=== PATIENT | male | born 1960 | race Caucasian/White ===

== ENCOUNTER 2017-04-16 12:45 | Day surgery (SDC) | payer OTHER ==
[~2017-04-16] VITALS: Ht 185.4 cm; Wt 103.9 kg
[2017-04-16] VITALS (8 sets, daily range): BP systolic 125–160; BP diastolic 77–94; PULSE 78–95; RESP 14–16; O2SAT 93–99
[~2017-04-16 12:45] MED LIST: BUSP7.5T5 PO; CYCL10TA9 PO; CeFAZolin Inj 2 GM in IV Premix 1 EACH IV ONE; HYDR-4003 PO; KLO5T PO; LISI10TA PO; Lactated Ringer's 1,000 ML IV SCH; MELO-259 PO; PROP10TA8 PO; TERA5CAP6 PO
[2017-04-16] MEDS ORDERED: MetoCLOpramide 5 mg/mL 2 mL Inj ONE (12:46)
[2017-04-16] MEDS ORDERED: Propofol 10,000 mCg/mL 20 mL Inj ONE (12:46)
[2017-04-16] MEDS ORDERED: Dexamethasone 4 mg/mL Inj ONE (12:46)
[2017-04-16] MEDS ORDERED: fentaNYL-PF 50 mCg/mL 2 mL Inj ONE (12:46)
[2017-04-16] MEDS ORDERED: EPHEDrine/NS 5 mg/mL 5 mL Syringe ONE (12:46)
[2017-04-16] MEDS ORDERED: Ondansetron 2 mg/mL 2 mL Inj ONE (12:46)
[2017-04-16] MEDS ORDERED: CeFAZolin Inj 2 gm / 50mL D5W IV ONE (14:18)
[2017-04-16] MEDS ORDERED: Lactated Ringer's 1,000 ML IV ONE (14:26)
[2017-04-16] MEDS ORDERED: Lactated Ringer's 500 ML IV PRN (15:04)
[2017-04-16] MEDS ORDERED: Lactated Ringer's 1,000 ML IV SCH (15:04)
[2017-04-16] MEDS ORDERED: Phenylephrine 10,000 mCg/mL Inj IVPUSH PRN (15:05)
[2017-04-16] MEDS ORDERED: fentaNYL-PF 50 mCg/mL 2 mL Inj IVPUSH PRN (15:05)
[2017-04-16] MEDS ORDERED: HYDROmorphone 1 mg/mL Inj IVPUSH PRN (15:05)
[2017-04-16] MEDS ORDERED: Atropine 0.4 mg/mL Inj IVPUSH PRN (15:05)
[2017-04-16] MEDS ORDERED: Labetalol 5 mg/mL 4 mL Inj IV PRN (15:05)
[2017-04-16] MEDS ORDERED: MetoCLOpramide 5 mg/mL 2 mL Inj IVPUSH PRN (15:05)
[2017-04-16] MEDS ORDERED: Ondansetron 2 mg/mL 2 mL Inj IVPUSH PRN (15:05)
[2017-04-16] MEDS ORDERED: EPHEDrine Sulfate 50 mg/mL Inj IVPUSH PRN (15:05)
[2017-04-16] MEDS ORDERED: Lidocaine 1%-Epi 1:100,000 20 mL Inj INJ ONE (15:06)
--- NOTE | 2017-04-16 15:15 | PCM.HPANE ---
Patient Data Surgeon Admitting Provider: Attending Provider:Bhupendra Pruitt DO Primary Care Physician:Cabrera Landa MD Other Provider:Miah Medrano Anesthesia Reason for Visit Left Thumb Ulnar Collateral Ligament Tear Ht/WT & BMI Height (Feet): 6 Height (Inches): 1 Weight (Kilograms): 103.87 Body Mass Index 30.00 Allergies Coded Allergies: No Known Allergies (Verified Allergy, Unknown, 04/15/17) Past Anesthesia History Anesthesia History: Denies:: Abnormal Airway, Anesthesia Reactions, Difficult Intubation, Fam Anesthesia Reaction, Fam Malignant Hypertherm, Malignant Hyperthermia Diabetes History Hx Diabetes?: No Medications Reported Medications Terazosin 5 Mg Capsule5 Mg PO HS Ref 0 04/15/17 Propranolol HCl 10 Mg [id number] Mg PO TID 90 Days Ref 0 04/15/17 Meloxicam 7.5 Mg Tablet7.5 Mg PO BID 30 Days Ref 0 04/15/17 Lisinopril 10 Mg [id number] Mg PO DAILY 30 Days Ref 0 04/15/17 Hydrocodone-Acetaminophen 5-325 mg 1 Each Tablet1 Tablet PO Q4H PRN For Pain Ref 0 04/15/17 Cyclobenzaprine 10 Mg [id number] Mg PO TID PRN Spasm 04/15/17 Clonazepam 0.5 Mg Tablet0.5 Mg PO BID PRN For Anxiety Ref 0 04/15/17 Buspirone 7.5 Mg Tablet7.5 Mg PO BID Ref 0 04/15/17 History History of ENT Problems?: No HEENT History: Denies:: Abnormal Airway Cataracts Difficult Intubation Dysphagia Glaucoma Hearing Problem Sinus Problem TMJ Denture Type: None Teeth Condition: Within Normal Limits Hx of Heart Problems?: Yes Cardiovascular History: Positive for:: Coronary Artery Disease (hyperlipedemia ) Hypertension Denies:: AICD Abdominal Aortic Aneurism Atrial Fibrillation Cardiac Surgery Chest Pain Congestive Heart Failure Edema Heart Murmur Irregular Heartbeat Pacemaker Peripheral Vascular Rheumatic Fever Thrombophlebitis Valvular Heart Disease Hx of Respiratory Problem?: No Respiratory History: Denies:: Asthma COPD Chest Surgery Cough Dyspnea Emphysema Hemoptysis Oxygen Administration Pneumonia Pulmonary Embolism Tuberculosis Use of C-PAP Machine Use of Inhalers / NEBS Hx Neurologic Problems?: No Neurological History: Denies:: Alzheimer's Disease CVA Dementia Dizziness Headaches Multiple Sclerosis Parkinson's Disease Peripheral Neuropathy Seizures TIA Hx of GI Problems?: Yes Gastrointestinal History: Denies:: Cirrhosis Diverticulitis Gall Bladder Disease Gastroesphageal Reflux Gastrointestinal Bleeding Heartburn Hepatitis Hiatal Hernia Liver Disease Rectal Bleeding Other GI Pertinent History: diverticulosis Hx of Problems?: No Genitourinary History: Denies:: HX of Hemodialysis Kidney Stones Urinary Tract Infection HX of Peritoneal Dialysis: No Male Hx: Positive for:: Prostate Problems (bph) Denies:: Scrotal Mass Testicular Surgery Skin History: Denies:: History Skin Disorders? Pressure Ulcers Hx Musculoskeletal Problems?: Yes Musculoskeletal History: Positive for:: Osteoarthritis Denies:: Back Injury Degenerative Joint Fibromyalgia Joint Replacement Musculoskeletal Trauma Myasthenia Gravis Rheumatoid Arthritis Systemic Lupus Hx of Psycho/Social Problems?: Yes Psycho Social History: Positive for:: Anxiety Hx Depression Denies:: Bipolar Disorder Suicide Attempt Hx Surgeries?: Yes (hernia x 2, knee scope) Hx Any Other Health Problems?: No Other History: Denies:: Cancer Endocrine Disease (ifg) Hx Diabetes: No Stop/Bang S-Snoring: Do You Snore Loudly: No T-Tired: feel tired, fatigued: No O-Obsered: Observed not breath: No P-Blood Pressure: treated: Yes B- Body Mass Index > 35 kg/m2: No A- Age over 50: Yes N- Neck Large Circumference: No G- Gender Male: Yes FRANCISCO Total Score: 3 Risk Assessment Category Category 1A: Patient has history of documented sleep apnea, and HAS NOT received any narcotic, sedative or anesthesia administration during this stay. Category 1B: Patient has history of documented sleep apnea, and HAS received any narcotic , sedative or anesthesia administration during this stay Category 2: Patient has SUSPECTED Obstructive Sleep Apnea, and HAS received any narcotic , sedative or anesthesia administration during this stay. Category 3: Patient has SUSPECTED Obstructive Sleep Apnea and HAS NOT received narcotic, sedative or anesthesia administration during this stay. Category 4: Outpatient in Procedural Areas with known sleep apnea or who screen positive for High Risk via the STOP/BANG questionnaire. Exam Exam General Appearance: Alert, Oriented X3, Cooperative, No Acute Distress HEENT/AIRWAY: MP 2, Neck Movement (FROM), Mouth Opening (3 FBMO) Lungs: Normal Air Movement Heart: Regular Rate/Rhythm Plan Impression Patient chart reviewed, patient interviewed and anesthestic plan with risks, benefits, and alternatives discussed, and informed consent obtained. NPO per Anesth. Guidelines: Yes ASA Physical Status: ASA2 Mod Systemic Disease Anesthetic Plan: GA Bene/Risks/Altern/Consents: Yes HP Complete Prior to Induction: Yes Sagar Vega MD April 16, 2017 13:53
--- NOTE | 2017-04-16 18:24 | PCM.ANEP1 ---
Post Anesthesia PACU Phase 1 Assessment Vital Signs Vital Signs Date Time Temp Pulse Resp B/P Pulse Ox O2 Delivery O2 Flow Rate FiO2 04/16/17 17:17 91 16 134/77 94 Room Air 04/16/17 16:25 94 14 134/87 93 Room Air 04/16/17 16:20 95 14 152/83 93 Room Air 04/16/17 16:15 36.7 91 14 141/88 96 Room Air 04/16/17 16:10 87 14 140/77 95 Room Air 04/16/17 16:05 90 14 126/88 99 Simple Mask 9 04/16/17 16:00 36.3 89 16 125/78 99 Simple Mask 9 04/16/17 13:30 36.6 78 14 160/94 96 Room Air Anesthetic Administered: GA Level of Alertness: Awake, talking GARCÍA's with Equal Strength: Yes Pain: No Nausea or Vomiting: No CV Function & Hydration Stable: No Airway Device: Oxygen Delivery: Room Air Lungs: Normal Air Movement Dermatome Level: Full Sensation PACU Phase 2 Assessment Complications: No Follow up Care: N/A Patient Instructions Provided: N/A Sagar Vega MD April 16, 2017 18:24
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
== END 2017-04-16 23:59 | disposition home or self-care (01) ==
LOC: SAS 12:45
PROVIDERS: ATTEND Orthopaedic Surgery
DX: S53.32XA Traumatic rupture of left ulnar collateral ligament, initial encounter (principal); I10 Essential (primary) hypertension; I25.10 Atherosclerotic heart disease of native coronary artery without angina pectoris; E78.5 Hyperlipidemia, unspecified; F41.8 Other specified anxiety disorders; M19.90 Unspecified osteoarthritis, unspecified site; N40.0 Benign prostatic hyperplasia without lower urinary tract symptoms; Y04.2XXA Assault by strike against or bumped into by another person, initial encounter; Y93.9 Activity, unspecified; Y92.9 Unspecified place or not applicable; Y99.8 Other external cause status
CPT/HCPCS: 26540; C1713; J0690; J1100; J1885; J2250; J2405; J2765; J3010; J7120